=== PATIENT | male | born 1970 | race Caucasian/White ===

== ENCOUNTER 2019-12-26 13:12 | Emergency (ER) | payer BC, SELFPAY ==
--- NOTE | 2019-12-26 13:24 | ED.WOUNDLAC ---
HPI - Wound/Laceration General Chief Complaint: Wound/Laceration Stated Complaint: pos spider bite Source: patient and RN notes reviewed Mode of arrival: ambulatory Limitations: no limitations History of Present Illness HPI narrative: This is a 49 years old male presents to the office for an evaluation of possible skin infection. He got bit by something about a week ago. He remembers feeling itchy. Then, he noticed the affected area has became a bit more painful and red. It has also grown in size. NO prior treatment for his symptoms. TD is up to date. Related Data Allergies Allergy/AdvReac Type Severity Reaction Status Date / Time milk Allergy Unknown Verified 01/20/19 13:41 Penicillins Allergy Unknown Unknown Verified 08/03/18 10:35 Review of Systems Review of Systems: Narrative: CONSTITUTIONAL: Denies fever, chills CARDIOVASCULAR: Denies chest pain, palpitation. RESPIRATORY: Denies dyspnea, wheezing, cough GASTROINTESTINAL: Denies abdominal pain, nausea, vomiting, diarrhea. SKIN: Reports left abdominal with red, painful/itchy lesions MUSCULOSKELETAL: Denies joints pain NEUROLOGIC: Denies lightheaded All other systems reviewed are negative, except as documented in HPI. [facility] Family History Family History Grandparent Diabetes mellitus Acute myocardial infarction Carcinoma of colon Social History Social History Smoking status: Never smoker Second hand tobacco smoke exposure: No Alcohol intake: current Gender identity (if verbalized by the patient): Male Comments At time of signature, I agree with nursing past medical, surgical, social and family history. There is no relevant family history pertinent to the presenting complaint. Exam Narrative: Exam Narrative: GENERAL: This is a well-nourished, well-developed patient, in no apparent distress. NECK: Neck supple, non-tender without lymphadenopathy, masses or thyromegaly. CARDIOVASCULAR: Regular rate and rhythm without murmurs, gallops, or rubs. RESPIRATORY: Clear to auscultation. Breath sounds equal bilaterally. No wheezes, rales, or rhonchi. GASTROINTESTINAL: Abdomen soft, non-tender, nondistended. Bowel sounds are active. No hepato-splenomegaly, or palpable masses. No guarding. SKIN: left mid lower abdominal noted a localize indurate, erythema, edematous lesion with darker color papule in center, ~quarter coin size NEURO: awake, alert, and oriented to person, place and time. There were no obvious focal neurologic abnormalities. Steady gait EXTREMITIES: Normal range of motion. Eastman Coma Scale Eye Opening: Spontaneous 4 Ling Coma Scale Motor: Obeys Commands 6 Eastman Coma Scale Verbal: Oriented 5 MDM - Wound/Laceration MDM Narrative Medical decision making narrative: Discharge instructions reviewed with patient, as well as provided in writing per nursing staff. The instructions also include specific and strict return/GO TO THE ER as well as f/u information. All questions have been answered, and the patient deny any further questions with discharge and discharge plan. Elevated BP noted, recommend he follow-up with his doctor in 2 to 4 weeks for recheck. Differential Diagnosis Differential diagnosis: Likely laceration, abscess, abrasion and avulsion of skin Critical Care Time Critical Care Time Critical Care Time: No Discharge Plan Discharge Clinical Impression: Infected insect bite Qualifiers: Encounter type: initial encounter Qualified Code(s): W57.XXXA - Bitten or stung by nonvenomous insect and other nonvenomous arthropods, initial encounter Patient Disposition: Home, Self-Care Condition: Stable Instructions: Antibiotic Form, Acute Wounds (DC) Additional Instructions: Clean with soap and water only; Avoid using alcohol and peroxide. Warm compress on affected area 2-3 times a day, about 10 to 15 minutes at a time to p
[2019-12-26 13:25] VITALS: BP 149/96; PULSE 89; RESP 20; TEMP 36.6; O2SAT 100
== END 2019-12-26 13:49 | disposition home or self-care (01) ==
PROVIDERS: Emergency Provider Nurse Practitioner; PCP Family Medicine
DX: L08.9 Local infection of the skin and subcutaneous tissue, unspecified (principal); S30.861A Insect bite (nonvenomous) of abdominal wall, initial encounter; W57.XXXA Bitten or stung by nonvenomous insect and other nonvenomous arthropods, initial encounter; I10 Essential (primary) hypertension
CPT/HCPCS: 99213; G0463

== ENCOUNTER 2023-03-18 08:26 | Outpatient (CLI) | payer BC, SELFPAY ==
--- NOTE | 2023-04-09 11:49 | WPDHOMESLEEP ---
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 He uses a mouthpiece due to frequent loud snoring. He rarely awakens from sleep feeling short of breath. He rarely wakes at night with heartburn, belching or coughing.??He occasionally snores, occasionally snores loudly enough that others complain. He occasionally has trouble sleeping when he has a cold. He constant wakes up gasping for breath during the night. He constantly has breathing problems at night. He constantly sweats excessively at night. He occasionally notices his heart pounding or beating irregularly during the night. He occasionally falls asleep during the day. He never falls asleep involuntarily, never falls asleep while driving. He never experiences loss of muscle tone with strong emotion. He never has daytime difficulty at work due to excessive sleepiness. He never feels paralyzed on waking or falling asleep. He never experiences vivid dreams upon waking or falling asleep. He never feels afraid of going to sleep. He never has nightmares. He occasion recalls his dreams. He occasionally has thoughts racing through his mind. He never feels sad or depressed. He never feels anxiety. He occasionally notices parts of his body jerk. He never kicks during the night. He never feels crawling or aching feelings in his legs. He never feels leg pain at night. He never has morning jaw pain, rarely grinds his teeth at night. He rarely feels bothered by pain during the day, rarely awakened by pain during the night. He occasionally wakes up feeling stiff in the morning, and he occasional wakes feeling sore or achy. He rarely awakens with pain in his neck, spine, or joints. Normal bedtime is 10:00 p.m., falling asleep within an hour. He wakes 3-4 times during the night. He typically gets while awake he gets a drink of water and goes to the bathroom. He estimates getting 8 or more hours of sleep at night. His wake up time is 7:00 a.m.. He takes short naps in the afternoon or evening, in the short naps are refreshing. He generally feels adequate on waking in the morning. Habits:??Tobacco: never Caffeine: he drinks tea in the morning. Alcohol: 6 beverages daily Recreational substances: none PMF Past Medical History Medical History (Updated 04/09/23 @ 12:50 by Alexa Gonzalez MD) Benign hypertension Colon polyp Hyperlipidemia LDL goal <100 Hypogonadism Long-term current use of testosterone replacement therapy Low testosterone in male Mild obstructive sleep apnea Milk allergy Obstructive sleep apnea Trochanteric bursitis of right hip Surgical History Surgical History History of shoulder surgery no metal implant [place] teeth extracted Family History Family History Grandparent Diabetes mellitus Acute myocardial infarction Carcinoma of colon Other Cerebrovascular accident Social History Social History Smoking status: Never smoker Second hand tobacco smoke exposure: No Alcohol intake: current Drinks per week: 12 Substance use: never Substance use type: does not use Occupation/Education: occupation Gender identity (if verbalized by the patient): Male Medications Home Medications Medication Instructions Recorded Confirmed Type syringe with needle, safety 3 mL #50 ea 05/13/21 11/25/22 Rx 21 gauge x 1 1/2 (Monoject Safety Syringes) needle (disp) 23 gauge 23 gauge x
[2023-04-09 12:52] VITALS: BMI 25.9
== END 2023-03-19 09:46 | disposition home or self-care (01) ==
LOC: ANHCSM 08:57
PROVIDERS: PCP Internal Medicine; Visit Provider Internal Medicine
DX: G47.33 Obstructive sleep apnea (adult) (pediatric) (principal)
CPT/HCPCS: 95800

== ENCOUNTER 2023-08-12 08:36 | Outpatient (CLI) | payer BC, SELFPAY ==
--- NOTE | ~2023-08-12 | XR_ITS ---
XR hip RT min 2V DATE: 08/12/2023 09:14 INDICATION: Pain TECHNIQUE: AP and lateral views of right hip COMPARISON: None FINDINGS: No fracture or dislocation, avascular necrosis or bone destruction of the right hip is dete cted. Right hip joint space appears relatively well preserved. The pubic symphysis and sacral iliac joints appear intact. IMPRESSION: Negative Reviewed, dictated and finalized at location [facility]. IMPRESSION: Negative
--- NOTE | ~2023-08-12 | XR_ITS ---
[id number] DATE: 08/12/2023 09:14 INDICATION: Medial left foot pain after playing pickle ball. Stopped running suddenly and felt a pop in the left foot TECHNIQUE: Standing three-view examination COMPARISON: None FINDINGS: No fracture or dislocation, periosteal reaction or bone destruction. Posterior tibial and metatarsal artery calcifications. IMPRESSION: No fracture or dislocation Arterial calcification Reviewed, dictated and finalized at Location [facility]. Reviewed, dictated and finalized at location B.
== END 2023-08-12 08:37 ==
PROVIDERS: PCP Internal Medicine; Visit Provider Clinical Nurse Specialist
DX: M25.551 Pain in right hip (principal); M79.672 Pain in left foot
CPT/HCPCS: 73502; 73630